=== PATIENT | female | born 1955 | race Caucasian/White ===

== ENCOUNTER 2020-06-02 12:20 | Emergency (ER) | payer MEDICARE, BC, SELFPAY ==
--- NOTE | ~2020-06-02 | XR_ITS ---
EXAMINATION: XR chest 2V 06/02/2020 12:59 INDICATION: Dry cough PROCEDURE: 2 view chest COMPARISON: No prior studies for comparison. FINDINGS: The lungs are clear. The cardiomediastinal silhouette is within normal limits. There are no pleural effusions. There is no pneumothorax suspected. IMPRESSION: 1: NO ACUTE CARDIOPULMONARY DISEASE. Reviewed, dictated and finalized at location A. [employer]
[2020-06-02 12:30] VITALS: BP 152/70; PULSE 90; RESP 20; TEMP 36.9; O2SAT 98
--- NOTE | 2020-06-02 12:53 | ED.GENADULT ---
HPI - General Adult General Chief complaint: Upper Respiratory Infection Stated complaint: fever and ear pain Source: patient Mode of arrival: ambulatory Limitations: no limitations History of Present Illness HPI narrative: Patient presents for evaluation of cough and fever. She indicates she has had a nonproductive cough for the last week. She denies any shortness of breath or chest pain. She has experienced a fever, as of last night. She states that her T max was 100.0F. She has a history of migraines and has experienced a headache and some nausea. She denies any vomiting or diarrhea. She has also some body aches and fatigue. She is currently under the care of endocrinology, Dr. Andres, at [facility] for DM. She has an insulin pump. She lives with her brother and [id number] and states her [id number] recently had COVID. She does not smoke. Related Data Home Medications Medication Instructions Recorded Confirmed insulin lispro [Humalog U-100 100 sliding scale dose CONTINUOUS 06/02/20 06/02/20 Insulin] SUBCUTANEOUS INFUSION DAILY meloxicam 15 mg PO DAILY 06/02/20 06/02/20 omeprazole 40 mg PO BID 06/02/20 06/02/20 venlafaxine 225 mg PO DAILY 06/02/20 06/02/20 Allergies Allergy/AdvReac Type Severity Reaction Status Date / Time azithromycin Allergy Unknown Hives / Verified 06/02/20 13:06 Red Face Penicillins AdvReac Intermediate Vomiting Verified 06/02/20 13:06 Review of Systems Review of Systems: Narrative: CONSTITUTIONAL: Reports fever and fatigue. Denies chills, or sweats. EYES: Denies visual changes, redness, or discharge. ENT: Denies rhinorrhea, congestion, sore throat, or otalgia. CARDIOVASCULAR: Denies chest pain, palpitations, or edema. RESPIRATORY: Reports cough. Denies dyspnea. GASTROINTESTINAL: Denies abdominal pain, nausea, vomiting, or diarrhea. GENITOURINARY: Denies dysuria or hematuria. SKIN: Denies rash or itching. MUSCULOSKELETAL: Reports generalized body aches. NEUROLOGIC: Reports headache. Denies numbness, dizziness, or weakness. PSYCHIATRIC: Denies anxiety or depression. [facility] Past Medical History Medical History (Updated 06/02/20 @ 13:32 by Holden Henry, [employer], ) Diabetes mellitus Migraines Surgical History Surgical History H/O oophorectomy History of appendectomy History of removal of ovarian cyst Family History Family History Mother COVID-19 Social History Social History Smoking status: Never smoker Substance use: never Living arrangements: with family Occupation/Education: retired Gender identity (if verbalized by the patient): Female Sexual Orientation (if Verbalized by the Patient): Straight or Heterosexual Spiritual care concerns: No Exam Narrative: Exam Narrative: GENERAL: Well-appearing, well-nourished, and in no acute distress. HEAD: Normocephalic, atraumatic. EYES: PERRLA and EOMI. ENT: Nares clear, no rhinorrhea or epistaxis. Mucous membranes moist. Oropharynx without tonsillar hypertrophy exudate or other lesions. Bilateral TMs pearly rinaldi nonbulging NECK: Supple. No adenopathy or masses. No carotid bruits or JVD CHEST: Clear to auscultation. No respiratory distress. No wheezes rales or rhonchi HEART: Regular rate and rhythm. No murmur heard. Normal peripheral pulses. ABDOMEN: Soft, nontender, nondistended, normal active bowel sounds. EXTREMITIES: Normal range of motion. No edema. SKIN: Warm, dry, no rash. NEURO: No focal deficits. Alert and oriented x3. PSYCH: Normal mood and affect. Course Course Emergency Course: This is a 64-year-old diabetic female that presents with 1 week history of cough and less than 24-hour history of low-grade fever. She was recently exposed to Covid and her rapid Covid here is positive. Of note her chest x-ray was unrema
[2020-06-02 13:06] VITALS: BP 152/70; PULSE 90; RESP 20; TEMP 36.9; O2SAT 98
== END 2020-06-02 13:40 | disposition home or self-care (01) ==
PROVIDERS: Emergency Provider Nurse Practitioner; PCP Internal Medicine
DX: U07.1 COVID-19 (principal); E11.9 Type 2 diabetes mellitus without complications; Z96.41 Presence of insulin pump (external) (internal)
CPT/HCPCS: 71046; 87081; 87426; 87804; 87880; 99213; C9803; G0463